=== PATIENT | male | born 1985 | race Caucasian/White ===

== ENCOUNTER → 2022-12-27 09:49 | Outpatient (CLI) | payer OTHER, SELFPAY ==
[2022-12-27 10:45] VITALS: PULSE 69; PULSE 72
--- NOTE | 2022-12-27 11:28 | XR_ITS ---
FINAL REPORT CLINICAL HISTORY: Shortness of breath vapes (unknown for how long) COMPARISON: None FINDINGS: Two views of the chest were obtained. The heart size and pulmonary vascularity are within normal limits. The mediastinum is normal. The lungs are hyperinflated consistent with COPD. No acute cardiopulmonary process identified. There is no pneumothorax. The bony thorax is intact. IMPRESSION: No active cardiopulmonary disease. Hyperinflated lungs consistent with COPD. Reviewed, Interpreted and Dictated by Doroteo Remy III, MD Transcribed by Laina Tuttle Authenticated and [facility]
== END ==
PROVIDERS: PCP Internal Medicine; Visit Provider Chiropractor
DX: J06.9 Acute upper respiratory infection, unspecified (principal); R06.02 Shortness of breath; F17.290 Nicotine dependence, other tobacco product, uncomplicated
CPT/HCPCS: 71046; 94060; 94640